=== PATIENT | male | born 1970 | race Hispanic/Latino ===

== ENCOUNTER 2020-06-16 00:20 | Emergency (ER) | payer OTHER ==
[2020-06-16] MEDS ORDERED: ORPHENADRINE CITRATE 30 MG/ML ML ONE (00:47)
[2020-06-16] MEDS ORDERED: KETOROLAC TROMETHAMINE 60 MG/2 ML VIAL ONE (00:47)
[2020-06-16] MEDS ORDERED: HYDROCODONE/ACETAMINOPHEN 5/325 MG TAB ONE (00:48)
[2020-06-16] MEDS ORDERED: LIDOCAINE 5% TOPICAL PATCH TP ONE (00:48)
== END 2020-06-16 03:53 | disposition home or self-care (01) ==
LOC: EDH 00:20
DX: S39.012A Strain of muscle, fascia and tendon of lower back, initial encounter (principal); M62.838 Other muscle spasm; I10 Essential (primary) hypertension; X58.XXXA Exposure to other specified factors, initial encounter; Y93.89 Activity, other specified; Y92.89 Other specified places as the place of occurrence of the external cause; Y99.8 Other external cause status
CPT/HCPCS: 72100; 96372 ×2; 99284; J1885; J2360